=== PATIENT | male | born 1995 | race Caucasian/White ===

== ENCOUNTER 2017-01-22 19:14 | Emergency (ER) | payer OTHER ==
[2017-01-22 19:26] VITALS: RESP 16; TEMP 98.6
--- NOTE | 2017-01-22 21:05 | EDPHY ---
H & P Time Seen by Provider: 01/22/17 20:13 HPI/ROS: CHIEF COMPLAINT: Left ear complaint HISTORY OF PRESENT ILLNESS: 21-year-old male presents emergency department complaining of a bump on his left earlobe. Patient was seen at an urgent care a few days ago and placed on an antibiotic. Patient states that the bump continues to grow. He has had cysts removed before around his ear. Patient denies fevers or chills. He is requesting to have this drained. REVIEW OF SYSTEMS: A comprehensive 10 point review of systems is otherwise negative aside from elements mentioned in the history of present illness. Smoking Status: Never smoked Physical Exam: GEN: Awake, alert, oriented, no acute distress RESP: nl resp effort MSK: Normal appearing SKIN: Earlobe with pea size fluctuant, tender, erythematous mass Constitutional: Initial Vital Signs Temperature (C) 37 C 01/22/17 19:23 Heart Rate 99 01/22/17 19:23 Respiratory Rate 16 01/22/17 19:23 Blood Pressure 126/74 H 01/22/17 19:23 O2 Sat (%) 97 01/22/17 19:23 O2 Delivery Mode Room Air Allergies/Adverse Reactions: Penicillins Allergy (Verified 01/22/17 19:23) shellfish derived Allergy (Verified 01/22/17 19:23) Home Medications: Medication Instructions Recorded NK [No Known Home Meds] 01/22/17 MDM/Departure - MDM Procedures: Procedure: Incision and Drainage cyst. The patient's cyst was located on the earlobe. Risks, benefits, alternatives discussed with the patient and consent obtained. The area was prepped and draped in sterile fashion. The patient received local anesthesia with 1% lidocaine without epinephrine. The cyst was incised with a #11 blade and purulent drainage along with thick white discharge was expressed. Most of cyst capsule removed though some of the capsule remains. The patient tolerated the procedure well. The procedure was performed by myself. - Depart Disposition: Home, Routine, Self-Care Clinical Impression: Sebaceous cyst of ear Condition: Good Instructions: Epidermal Inclusion Cysts (ED) Additional Instructions: Remove your dressing in 24 hours, warm compresses 5 times a day for 10 minutes, follow up with the parole or probation officer at first available appointment. Call in the morning to schedule this. Referrals: LITZY TOPETE [Medical Doctor] - As per Instructions (Pin Inserter Regulator)
[2017-01-22 21:47] VITALS: BP 107/51; PULSE 77; O2SAT 96
== END 2017-01-22 21:47 | disposition home or self-care (01) ==
PROC: 09910ZZ Drainage of Left External Ear, Open Approach (ICD-10-PCS; principal; 2017-01-22)
DX: L72.3 Sebaceous cyst (principal)

== ENCOUNTER 2017-03-14 18:38 | Emergency (ER) | payer OTHER ==
[2017-03-14 18:46] VITALS: BP 105/62; PULSE 81; RESP 16; TEMP 98.2; O2SAT 97
[2017-03-14] MEDS ORDERED: DEXAMETHASONE 4 MG TAB PO ONE (19:20)
--- NOTE | 2017-03-14 19:25 | EDPHY ---
H & P Stated Complaint: sore throat x 5 days, fevers, chills, malaise - Personal History Current Tetanus/Diphtheria Vaccine: Yes Current Tetanus Diphtheria and Acellular Pertussis (TDAP): Yes - Medical/Surgical History Hx Asthma: Yes Hx Chronic Respiratory Disease: No Hx Diabetes: No Hx Cardiac Disease: No Hx Renal Disease: No Hx Cirrhosis: No Hx Alcoholism: No Hx HIV/AIDS: No Hx Splenectomy or Spleen Trauma: No Other PMH: PMHx: denies. PSHx: denies - Social History Smoking Status: Never smoked Time Seen by Provider: 03/14/17 19:12 HPI/ROS: Chief complaint: Sore throat History of present illness: This is a 21-year-old male who presents to the emergency department for a 5 day history of sore throat. He has had associated swelling of the glands in his neck. He reports fevers as well. He denies other associated signs or symptoms including no difficulty opening closing his mouth, no difficulty swallowing, no difficulty breathing, no difficulty talking , no cough, no rash. (Christian Hernandez) - Physical Exam Exam: General Appearance: Alert, nontoxic. Eyes: Pupils equal and round no injection. ENT: Tympanic membranes, external auditory canals, external ears and surrounding soft tissue including over the mastoids are unremarkable. Nasopharynx is not injected. There is no rhinorrhea. Oropharynx is erythematous and edematous with diffuse white exudate. There is no asymmetry. The uvula is midline. No elevation of the tongue. There is no hoarseness, no drooling, no trismus, no stridor. Respiratory: Chest is nontender, lungs are clear to auscultation. Cardiac: regular rate and rhythm. Musculoskeletal: Neck is supple and nontender. Extremities have full range of motion and are nontender. Skin: No rashes or lesions. Neurological: Alert and oriented x4. No meningismus. (Christian Hernandez) Constitutional: Initial Vital Signs Temperature (C) 36.8 C 03/14/17 18:44 Heart Rate 81 03/14/17 18:44 Respiratory Rate 16 03/14/17 18:44 Blood Pressure 105/62 03/14/17 18:44 O2 Sat (%) 97 03/14/17 18:44 O2 Delivery Mode Room Air Allergies/Adverse Reactions: Penicillins Allergy (Verified 03/14/17 18:44) shellfish derived Allergy (Verified 03/14/17 18:44) Home Medications: Medication Instructions Recorded AZITHROMYCIN [Z-PACK] 250 mg PO DAILY #6 tab 03/14/17 Medical Decision Making ED Course/Re-evaluation: Patient seen under the supervision of my secondary supervising physician Dr. Yolette Salazar. Patient presents to the emergency department for persistent sore throat. He is strep positive. No evidence of complications such as abscess formation. He is given Decadron for symptom control. Given penicillin allergy ( he is not sure what kind of reaction) I will place him on a Z-Roque for treatment. Home care is discussed. He is to follow up with a primary care doctor for recheck. Return precautions are given. Patient voiced understanding and agreement with plan. (Christian Hernandez) Differential Diagnosis: Pharyngitis, tonsillitis, this includes infection with strep, unlikely abscess formations, meningitis (Christian Hernandez) Other Provider: The patient was evaluated and managed by the Physician Agent Licensing Clerk/ Nurse Practitioner. My co-signature indicates that I have reviewed this chart and I agree with the findings and plan of care as documented. I am the secondary supervising physician. (Yolette Salazar) - Data Points Medications Given: Discontinued Medications Dexamethasone (Decadron) 10 mg PO EDNOW ONE Stop: 03/14/17 19:21 Last Admin: 03/14/17 19:34 Dose: 10 mg Departure - Departure Disposition: Home, Routine, Self-Care Clinical Impression: Acute streptococcal pharyngitis Condition: Good Instructions: Strep Throat (ED) Additional Instructions: Follow up with your primary care doctor for recheck Take all antibiotics as prescribed until finished If symptoms worsen or new symptoms develop return to the emergency room for recheck Referrals: NONE *PRIMARY CARE P,. [Primary Care Provider] - As per Instructions [facility],. [Clinic] - As per Instructions Prescriptions: AZITHROMYCIN [Z-PACK] 250 mg PO DAILY #6 tab
== END 2017-03-14 19:34 | disposition home or self-care (01) ==
DX: J02.0 Streptococcal pharyngitis (principal); J45.909 Unspecified asthma, uncomplicated

== ENCOUNTER 2017-03-19 18:33 | Emergency (ER) | payer OTHER ==
[2017-03-19 18:43] VITALS: BP 133/90; PULSE 74; RESP 16; TEMP 98.4; O2SAT 98
[2017-03-19] MEDS ORDERED: CLINDAMYCIN 150MG PREPACK#6 BTL TAKEHOME ONE (19:02)
[2017-03-19] MEDS ORDERED: DEXAMETHASONE 2 MG TAB PO ONE (19:03)
--- NOTE | 2017-03-19 19:06 | EDPHY ---
H & P Time Seen by Provider: 03/19/17 18:54 HPI/ROS: CHIEF COMPLAINT: Sore throat HISTORY OF PRESENT ILLNESS: Was in the ED 03/14/2017 and diagnosed with strep throat and prescribed azithromycin. He got better initially and then over the last 48 hours he has had a recurrent sore throat. Worse with swallowing and pain does not radiate. Symptoms moderate. No trouble breathing. REVIEW OF SYSTEMS: No neck stiffness or chest pain PAST MEDICAL HISTORY: Negative Social history: Nonsmoker General Appearance: Alert and conversant, cooperative. Pharyngeal erythema and tonsillar swelling with exudate. Uvula midline. No trismus. Normal voice and no stridor or drooling. Normal range of motion of the neck but does have anterior cervical lymphadenopathy. No cardiac murmur. Breath sounds equal and speaks in full sentences. Emergency Department course/MDM: Likely recurrent strep throat, will treat with dexamethasone and clindamycin this time. ENT referral Smoking Status: Never smoked Constitutional: Initial Vital Signs Temperature (C) 36.9 C 03/19/17 18:42 Heart Rate 74 03/19/17 18:42 Respiratory Rate 16 03/19/17 18:42 Blood Pressure 133/90 H 03/19/17 18:42 O2 Sat (%) 98 03/19/17 18:42 O2 Delivery Mode Room Air Allergies/Adverse Reactions: Penicillins Allergy (Verified 03/14/17 18:44) shellfish derived Allergy (Verified 03/14/17 18:44) Home Medications: Medication Instructions Recorded AZITHROMYCIN [Z-PACK] 250 mg PO DAILY #6 tab 03/14/17 Clindamycin HCl [Clindamycin] 300 mg PO TID #30 cap 03/19/17 MDM/Departure - MDM Medications Given: Discontinued Medications Clindamycin (Cleocin 150 Mg Prepack#6) 1 btl TAKEHOME EDNOW ONE PRN Reason: Protocol Stop: 03/19/17 19:03 Last Admin: 03/19/17 19:14 Dose: 1 btl Dexamethasone (Dexamethasone) 8 mg PO EDNOW ONE Stop: 03/19/17 19:04 Last Admin: 03/19/17 19:15 Dose: 8 mg - Depart Disposition: Home, Routine, Self-Care Clinical Impression: Acute pharyngitis Qualifiers: Pharyngitis/tonsillitis etiology: streptococcus Qualified Code(s): J02.0 - Streptococcal pharyngitis Condition: Good Instructions: Pharyngitis (ED) Prescriptions: Clindamycin HCl [Clindamycin] 300 mg PO TID #30 cap Referrals: Anna Connelly MD [Medical Doctor] - 2-3 days, if not improved (ENT if not better)
[2017-03-19] MEDS ORDERED: DEXAMETHASONE 4 MG TAB ONE (19:10)
[2017-03-19] MEDS ORDERED: DEXAMETHASONE 4 MG TAB PO ONE (19:18)
== END 2017-03-19 19:15 | disposition home or self-care (01) ==
DX: J02.0 Streptococcal pharyngitis (principal)

== ENCOUNTER 2017-09-26 20:04 | Emergency (ER) | payer OTHER ==
[2017-09-26 20:09] VITALS: RESP 16
[2017-09-26] MEDS ORDERED: CEPHALEXIN 500 MG CAP PO ONE (22:16)
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
[2017-09-26 22:26] VITALS: BP 133/75; PULSE 74; TEMP 98.1; O2SAT 97
== END 2017-09-26 22:30 | disposition home or self-care (01) ==
DX: S16.1XXA Strain of muscle, fascia and tendon at neck level, initial encounter (principal); L73.9 Follicular disorder, unspecified; V48.0XXA Car driver injured in noncollision transport accident in nontraffic accident, initial encounter; Y92.410 Unspecified street and highway as the place of occurrence of the external cause; Y93.89 Activity, other specified

== ENCOUNTER 2018-06-06 10:46 | Inpatient (IN) | payer OTHER ==
--- NOTE | 2018-06-06 10:54 | EDPHY ---
H & P <HuberRuy Duran - Last Filed: 06/06/18 12:08> - Medical/Surgical History Hx Asthma: Yes Hx Chronic Respiratory Disease: No Hx Diabetes: No Hx Cardiac Disease: No Hx Renal Disease: No Hx Cirrhosis: No Hx Alcoholism: No Hx HIV/AIDS: No Hx Splenectomy or Spleen Trauma: No Other PMH: PMHx: denies. PSHx: denies - Social History Smoking Status: Never smoked <Anuradha Hopper - Last Filed: 06/06/18 14:01> Time Seen by Provider: 06/06/18 10:51 HPI/ROS: CHIEF COMPLAINT: Seizure versus syncope HISTORY OF PRESENT ILLNESS: 23-year-old male arrives by ambulance after witnessed seizure versus syncopal episode while at work. History obtained primarily from EMS as the patient was actively seizing upon my evaluation. He works as a glass cutter. Upon EMS arrival patient was awake alert had a noted laceration to his tongue. He had stage EMS that he had been feeling 2-3 days of flu-like symptoms, fatigue. He awoke this morning with back pain. REVIEW OF SYSTEMS: 10 systems reviewed and negative with the exception of the elements mentioned in the history of present illness PAST MEDICAL/SURGICAL HISTORY: No known seizure history . SOCIAL HISTORY: No secondhand reports of alcohol or drug use PHYSICAL EXAM 1) GENERAL: Well-developed, well-nourished, alert and oriented. Appears to be in no acute distress. Answering questions appropriately. 2) HEAD: Normocephalic, atraumatic 3) HEENT: Pupils equal, round, reactive to light bilaterally. Negative Horners. Nasopharynx, oropharynx, clear. No deformity or angulation of nose. No septal hematoma. No rhinorrhea. Lateral aspect of tongue laceration/ abrasion.. Ears bilaterally with normal tympanic membranes. No hemotympanum. No fluid or blood in the external auditory canal. No raccoon eyes. No Pitts sign. Teeth are normally aligned with no gross malocclusion, TMJ bilaterally nontender, facial bones nontender including the zygomatic arch, maxilla mandible. 4) NECK: No cervical collar is on. Posterior cervical spine is nontender, no stepoff, no effusion. Full range of motion which does not elicit any midline cervical spine pain, no posterior midline tenderness, no step-off. 5) LUNGS: Clear to auscultation bilaterally, no wheezes, no rhonchi, no retractions. No obvious signs of trauma. No chest wall pain. No flaring, no grunting. Moving symmetrically. No crepitus. 6) HEART: Regular rate and rhythm, 7) ABDOMEN: No guarding, no rebound, no focal tenderness, no peritoneal signs, no signs of trauma, no ecchymosis 8) MUSCULOSKELETAL: Moving all extremities, no focal areas of tenderness, no obvious trauma. No erythema no discoloration. 9) BACK: No midline vertebral tenderness, no fluctuance, no step-off, no obvious trauma, no visual or palpable abnormality. Patella Achilles reflexes intact to bilaterally strength 5/5 10) SKIN: No laceration. No abrasion DIFFERENTIAL DIAGNOSIS: In no particular order including but limited to seizure , status epilepticus, intracranial hemorrhage, cardiac dysrhythmia (Anuradha Hopper) Constitutional: Initial Vital Signs Temperature (C) 36.4 C 06/06/18 10:57 Heart Rate 85 06/06/18 10:57 Respiratory Rate 24 H 06/06/18 10:57 Blood Pressure 144/80 H 06/06/18 10:57 O2 Sat (%) 99 06/06/18 10:57 O2 Delivery Mode Non-Rebreather Mask O2 (L/minute) 15 Allergies/Adverse Reactions: shellfish derived Allergy (Verified 03/14/17 18:44) Home Medications: Medication Instructions Recorded Naproxen Sodium [Aleve 220 MG (*)] 220 mg PO BID PRN 06/06/18 Medical Decision Making - Diagnostics Imaging: Discussed imaging studies w/ faculty i on call medical assistant Radiologist, I viewed and interpreted images myself <Ruy Ngo A - Last Filed: 06/06/18 12:08> <Anuradha Hopper - Last Filed: 06/06/18 14:01> - Diagnostics Imaging Results: Imaging Impressions Chest X-Ray 06/06/18 10:55 Impression: 1. Mild peribronchial cuffing in the perihilar region bilaterally. Findings are nonspecific but can be seen with bronchitis, viral process, or reactive airways disease. 2. Haziness right suprahilar region that could represent focal area of pneumonitis. Head CT 10/05/18 10:55 Impression: 1. Small intraparenchymal hemorrhage right posterior temporal occipital lobe. 2. No subdural hematoma or acute fracture. Findings discussed with Emergency Department physician assistant branch operations manager, Hector Hopper PA-C on June 06, 2018 at 1145 hours. Images reviewed myself (Anuradha Hopper) ED Course/Re-evaluation: 10:51 a.m.: Dr Ngo and I called to bedside emergently shortly after patient arrival via ambulance, patient was actively seizing, had bitten his tongue, had generalized tonic-clonic like movements. Patient transferred from room 18 to trauma [place] 2 where he seizure stopped, remain postictal. Given IV Ativan 2 mg. Will order further diagnostic studies. 10:59 a.m.: Patient's mother, Jaylene Zarate, cell [phone], call the ER at this time, relates this that the patient had texture this morning stating that he was feeling ill, had related that he went to see his primary care physician yesterday because of URI symptoms for the past 2 days, cough, low energy, was diagnosed with presumptive viral syndrome. She relates no history of seizure disorder. No history of similar activity. No history of trauma. No history of substance abuse. No history of alcohol abuse. No history of benzodiazepine abuse 11:40 a.m.: Phone call from radiologist regarding the patient's imaging findings showing a right occipital temporal intraparenchymal hemorrhage. Discussed with Dr. Ruy Ngo at this time. Will consult Neurosurgery 11:50 a.m.: Consultation Dr. Amador will consult Neurosurgery 11:55 a.m.: I spoke with the patient's parents at this time. Father is working a flight this way from [place] Noon: I spoke with the patient at this time. He is much more awake, he is alert, oriented person place time events. He denies recent head injury, denies head or neck manipulation, denies illicit drug use beyond intermittent marijuana use. He denies antecedent headache this morning. States that he believes his hr manager called 911. 12:15 p.m.: Dr. Sadi Rico in the ER to evaluate patient. He recommends CTA and MRI, admit to hospitalist, ICU, Neurosurgery consult 1230 pm: Consultation with hospitalist who agrees to consult for the medicine service (Anuradha Hopper) Other Provider: I assessed this patient in conjunction with MEHDI Hopper since his arrival in the ED. 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 He reported no seizure history to EMS during their assessment. Shortly after arrival here he had a tonic-clonic seizure lasting 1.5-2 minutes. During the seizure he had a fixed leftward gaze and short period of apnea. Bilateral tongue bites noted. He received 2mg IV Ativan with improvement. Vitals are currently stable. Plan for labs, head CT, and seizure management. 1gm IV Keppra ordered. CT: intraparenchymal hemorrhage, occipital lobe. Dr. Walker, neurosurgeon, is aware of patient and will consult. Critical care time spent by me, Dr. Ngo, exclusively with this patient was 35 minutes, exclusive of PA time and exclusive of procedures. The organ system at risk was brain. Time spent in urgent assessment and serial assessments of patient, discussion with patient and family, consideration of interventions, review of CT scans, and consultation with neurosurgery. (Ruy Ngo) - Data Points Laboratory Results: Laboratory Results 06/06/18 10:55 06/06/18 10:55 06/06/18 06/06/18 06/06/18 11:11 10:57 10:55 WBC RBC Hgb POC Hgb 17.7 gm/dL H gm/dL (13.7-17.5) Hct POC Hct 52 % H % (40-51) MCV MCH MCHC RDW Plt Count MPV Neut % (Auto) Lymph % (Auto) [place] % (Auto) Eos % (Auto) Baso % (Auto) Nucleat RBC Rel Count Absolute Neuts (auto) Absolute Lymphs (auto) Absolute Monos (auto) Absolute Eos (auto) Absolute Basos (auto) Absolute Nucleated RBC Immature Gran % Immature Gran # PT INR APTT POC Sodium 143 mEq/L mEq/L (135-145) Sodium POC Potassium 3.3 mEq/L mEq/L (3.3-5.0) Potassium POC Chloride 105 mEq/L mEq/L (97-110) Chloride Carbon Dioxide Anion Gap POC BUN 9 mg/dL mg/dL (7-23) BUN Creatinine POC Creatinine 0.9 mg/dL mg/dL (0.7-1.3) Estimated GFR Glucose POC Glucose 96 mg/dL mg/dL (70-100) Calcium Nasal Influenza A PCR NEGATIVE FOR FLU A (NEGATIVE) Nasal Influenza B PCR NEGATIVE FOR FLU B (NEGATIVE) Ethyl Alcohol Monoscreen NEGATIVE (NEGATIVE) 06/06/18 06/06/18 06/06/18 10:55 10:55 10:35 WBC 14.29 10^3/uL H 10^3/uL (3.80-9.50) RBC 5.62 10^6/uL 10^6/uL (4.40-6.38) Hgb 16.5 g/dL g/dL (13.7-17.5) POC Hgb Hct 49.9 % % (40.0-51.0) POC Hct MCV 88.8 fL fL (81.5-99.8) MCH 29.4 pg pg (27.9-34.1) MCHC 33.1 g/dL g/dL (32.4-36.7) RDW 13.4 % % (11.5-15.2) Plt Count 290 10^3/uL 10^3/uL (150-400) MPV 10.0 fL fL (8.7-11.7) Neut % (Auto) 86.3 % H % (39.3-74.2) Lymph % (Auto) 5.9 % L % (15.0-45.0) [place] % (Auto) 5.5 % % (4.5-13.0) Eos % (Auto) 0.6 % % (0.6-7.6) Baso % (Auto) 0.4 % % (0.3-1.7) Nucleat RBC Rel Count 0.0 % % (0.0-0.2) Absolute Neuts (auto) 12.33 10^3/uL H 10^3/uL (1.70-6.50) Absolute Lymphs (auto) 0.84 10^3/uL L 10^3/uL (1.00-3.00) Absolute Monos (auto) 0.78 10^3/uL 10^3/uL (0.30-0.80) Absolute Eos (auto) 0.09 10^3/uL 10^3/uL (0.03-0.40) Absolute Basos (auto) 0.06 10^3/uL 10^3/uL (0.02-0.10) Absolute Nucleated RBC 0.00 10^3/uL 10^3/uL (0-0.01) Immature Gran % 1.3 % H % (0.0-1.1) Immature Gran # 0.19 10^3/uL H 10^3/uL (0.00-0.10) PT 13.4 SEC SEC (12.0-15.0) INR 1.00 (0.83-1.16) APTT 27.3 SEC SEC (23.0-38.0) POC Sodium Sodium 143 mEq/L mEq/L (135-145) POC Potassium Potassium 3.8 mEq/L mEq/L (3.3-5.0) POC Chloride Chloride 104 mEq/L mEq/L (97-110) Carbon Dioxide 21 mEq/l L mEq/l (22-31) Anion Gap 18 mEq/L H mEq/L (8-16) POC BUN BUN 10 mg/dL mg/dL (7-23) Creatinine 0.8 mg/dL mg/dL (0.7-1.3) POC Creatinine Estimated GFR > 60 Glucose 98 mg/dL mg/dL (70-100) POC Glucose Calcium 10.5 mg/dL H mg/dL (8.5-10.4) Nasal Influenza A PCR Nasal Influenza B PCR Ethyl Alcohol < 10 mg/dL mg/dL (0-10) Monoscreen Medications Given: Discontinued Medications Levetiracetam (Keppra (Premix)) 100 mls @ 400 mls/hr IV EDNOW ONE Stop: 06/06/18 11:12 Last Admin: 06/06/18 11:33 Dose: 100 mls Lorazepam (Ativan Injection) 2 mg IVP EDNOW ONE Stop: 06/06/18 10:56 Last Admin: 06/06/18 10:55 Dose: 2 mg Point of Care Test Results: Chemistry 06/06/18 10:57 POC Sodium 143 mEq/L mEq/L (135-145) POC Potassium 3.3 mEq/L mEq/L (3.3-5.0) POC Chloride 105 mEq/L mEq/L (97-110) POC BUN 9 mg/dL mg/dL (7-23) POC Creatinine 0.9 mg/dL mg/dL (0.7-1.3) POC Glucose 96 mg/dL mg/dL (70-100) ISTAT H&H 06/06/18 10:57 POC Hgb 17.7 gm/dL H gm/dL (13.7-17.5) POC Hct 52 % H % (40-51) Departure <Ruy Ngo - Last Filed: 06/06/18 12:08> <Anuradha Hopper - Last Filed: 06/06/18 14:01> - Departure Disposition: [facility] Inpatient Acute Clinical Impression: Intraparenchymal hemorrhage of brain, Seizure Condition: Fair
[2018-06-06] MEDS ORDERED: LORazepam 2 MG/ML INJ IVP ONE (10:55)
[2018-06-06] MEDS ORDERED: levETIRAcetam 1000MG/NACL 100 ML IV ONE (10:58)
[2018-06-06] MEDS ORDERED: LORazepam 2 MG/ML INJ ONE (10:58)
[2018-06-06 11:02] LABS: PLATELET COUNT 290 10^3/uL (150-400)
[2018-06-06 11:38] LABS: PROTIME(PATIENT) 13.4 SEC (12.0-15.0)
[2018-06-06] MEDS ORDERED: IOPAMIDOL (ISOVUE 370) 100 ML BTL IV ONE (12:21)
--- NOTE | 2018-06-06 14:35 | PDHOSCONS ---
History and Physical - Chief Complaint Seizure, LOC - History of Present Illness Cesar Zarate is a 23 yo M with no significant PMHx who presents to [facility] after witnessed seizure and found to have intraparenchymal hemorrhage. 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 Upon arrival to [facility] ED, patient had seizure while In ED. He reports no hx of syncope or seizures in the past. He was given 2 mg IV Ativan and 1 gm IV Keppra. Upon evaluation, patient appears postictal with intermittent drowsiness. He does report having cold symptoms for the past few days. Including cough and chills. He denies any chest pain, SOB, palpitations, edema, d/c, n/v, weakness. History Information - Allergies/Home Medication List Allergies/Adverse Reactions: shellfish derived Allergy (Verified 03/14/17 18:44) Home Medications: Naproxen Sodium [Aleve 220 MG (*)] 220 mg PO BID PRN 06/06/18 [Last Taken ] I have personally reviewed and updated: family history, medical history, social history, surgical history - Past Medical History no pertinent PMH - Surgical History Reports: no pertinent surgical hx - Family History Negative for: sudden - Social History Smoking Status: Never smoked Drug Use: Marijuana Review of Systems Review of Systems: ROS: 10pt was reviewed & negative except for what was stated in HPI & below Physical Exam Physical Exam: Temp Pulse Resp BP Pulse Ox 36.8 C 92 10 L 108/66 98 06/06/18 13:54 06/06/18 14:00 06/06/18 14:00 06/06/18 13:54 06/06/18 14:00 O2 (L/minute) 2 Constitutional: uncomfortable Eyes: PERRL Ears, Nose, Mouth, Throat: moist mucous membranes Cardiovascular: regular rate and rhythym Respiratory: no respiratory distress, clear to auscultation Gastrointestinal: soft, non-tender abdomen Genitourinary: no bladder tenderness Skin: warm Musculoskeletal: no muscle tenderness Neurologic: No AAOx3 Psychiatric: not encephalopathic Lab Data & Imaging Review 06/06/18 10:55 06/06/18 10:55 WBC 14.29 10^3/uL (3.80-9.50) H 06/06/18 10:55 RBC 5.62 10^6/uL (4.40-6.38) 06/06/18 10:55 Hgb 16.5 g/dL (13.7-17.5) 06/06/18 10:55 POC Hgb 17.7 gm/dL (13.7-17.5) H 06/06/18 10:57 Hct 49.9 % (40.0-51.0) 06/06/18 10:55 POC Hct 52 % (40-51) H 06/06/18 10:57 MCV 88.8 fL (81.5-99.8) 06/06/18 10:55 MCH 29.4 pg (27.9-34.1) 06/06/18 10:55 MCHC 33.1 g/dL (32.4-36.7) 06/06/18 10:55 RDW 13.4 % (11.5-15.2) 06/06/18 10:55 Plt Count 290 10^3/uL (150-400) 06/06/18 10:55 MPV 10.0 fL (8.7-11.7) 06/06/18 10:55 Neut % (Auto) 86.3 % (39.3-74.2) H 06/06/18 10:55 Lymph % (Auto) 5.9 % (15.0-45.0) L 06/06/18 10:55 [place] % (Auto) 5.5 % (4.5-13.0) 06/06/18 10:55 Eos % (Auto) 0.6 % (0.6-7.6) 06/06/18 10:55 Baso % (Auto) 0.4 % (0.3-1.7) 06/06/18 10:55 Nucleat RBC Rel Count 0.0 % (0.0-0.2) 06/06/18 10:55 Absolute Neuts (auto) 12.33 10^3/uL (1.70-6.50) H 06/06/18 10:55 Absolute Lymphs (auto) 0.84 10^3/uL (1.00-3.00) L 06/06/18 10:55 Absolute Monos (auto) 0.78 10^3/uL (0.30-0.80) 06/06/18 10:55 Absolute Eos (auto) 0.09 10^3/uL (0.03-0.40) 06/06/18 10:55 Absolute Basos (auto) 0.06 10^3/uL (0.02-0.10) 06/06/18 10:55 Absolute Nucleated RBC 0.00 10^3/uL (0-0.01) 06/06/18 10:55 Immature Gran % 1.3 % (0.0-1.1) H 06/06/18 10:55 Immature Gran # 0.19 10^3/uL (0.00-0.10) H 06/06/18 10:55 PT 13.4 SEC (12.0-15.0) 06/06/18 10:35 INR 1.00 (0.83-1.16) 06/06/18 10:35 APTT 27.3 SEC (23.0-38.0) 06/06/18 10:35 POC Sodium 143 mEq/L (135-145) 06/06/18 10:57 Sodium 143 mEq/L (135-145) 06/06/18 10:55 POC Potassium 3.3 mEq/L (3.3-5.0) 06/06/18 10:57 Potassium 3.8 mEq/L (3.3-5.0) 06/06/18 10:55 POC Chloride 105 mEq/L (97-110) 06/06/18 10:57 Chloride 104 mEq/L (97-110) 06/06/18 10:55 Carbon Dioxide 21 mEq/l (22-31) L 06/06/18 10:55 Anion Gap 18 mEq/L (8-16) H 06/06/18 10:55 POC BUN 9 mg/dL (7-23) 06/06/18 10:57 BUN 10 mg/dL (7-23) 06/06/18 10:55 Creatinine 0.8 mg/dL (0.7-1.3) 06/06/18 10:55 POC Creatinine 0.9 mg/dL (0.7-1.3) 06/06/18 10:57 Estimated GFR > 60 06/06/18 10:55 Glucose 98 mg/dL (70-100) 06/06/18 10:55 POC Glucose 96 mg/dL (70-100) 06/06/18 10:57 Calcium 10.5 mg/dL (8.5-10.4) H 06/06/18 10:55 Nasal Influenza A PCR NEGATIVE FOR FLU A (NEGATIVE) 06/06/18 11:11 Nasal Influenza B PCR NEGATIVE FOR FLU B (NEGATIVE) 06/06/18 11:11 Ethyl Alcohol < 10 mg/dL (0-10) 06/06/18 10:55 Monoscreen NEGATIVE (NEGATIVE) 06/06/18 10:55 Visualized and Interpreted Chest x-ray results: Yes Chest X-Ray results: no infiltrate Assessment & Plan Assessment: Intraparenchymal Hemorrhage/Seizure - Witnessed seizure this morning at work with LOC - No hx of intracranial hemorrhage, seizure d/o - ETOH negative on admission - CT Head on admission shows small intraparenchymal hemorrhage, R posterior temporal occipital Lobe - Head CTA negative - Neurosurgery consulted who are awaiting MRI brain for further recommendations - Discussed case with Dr. Cardoso, Neurology, who recommended 500 mg Keppra BID, will see patient and give further recommendations - Seizure precautions, Neurochecks ordered - PT/OT Hypokalemia - 3.3 on admission - Order K replacement protocol - Continue to monitor K URI - Reports 3 days of cough and chills - Afebrile on admission, WBC 14.2 - CXR on admission shows mild peribronchial cuffing in perihilar region b/l, nonspecific but can be seen with bronchitis, viral process, or reactive airway disease, haziness in R suprahilar region that could represent area of pneumonitis - Hold off on antibiotics, provide symptom relief with anti-tussive, mucolytic - Flu negative on admission, will order RVP FEN: Regular diet Code: FULL PPx: None due to intraparenchymal hemorrhage Dispo: Admit to Medicine, pending clinical course
--- NOTE | 2018-06-06 15:46 | SOAPPROG ---
Downtime Inpatient MD Late Entry SOAP Note: Full consult dictated. Patient was seen in the ED. CTA was negative. He had some LBP in the ED and lumbar xrays negative. thoracic xray showed some upper T spine wedging. a/p: Patient with an unusual density in the right temporal occipital region. Needs control of seizures MRI of the brain is pending. We have no further recommendations until MRI is completed. We will continue to follow for now.
[2018-06-06] MEDS ORDERED: ONDANSETRON 4 MG/2 ML VIAL IVP PRN (16:03)
[2018-06-06] MEDS ORDERED: ONDANSETRON DISINTEGRATING 4 MG TAB PO PRN (16:03)
[2018-06-06] MEDS ORDERED: guaiFENesin/CODEINE PHOS 10 ML UDCUP PO PRN (16:10)
[2018-06-06] MEDS ORDERED: PROTOCOL POTASSIUM 1 DOSE MISC PRN (16:10)
[2018-06-06] MEDS: ACETAMINOPHEN 325 MG TAB PO PRN (18:31)
--- NOTE | 2018-06-06 18:50 | GCON ---
NEUROSURGICAL CONSULTATION DATE OF CONSULTATION: 06/06/2018 REASON FOR CONSULTATION: Right temporo-occipital density on CT scan following seizure. HISTORY OF PRESENT ILLNESS: The patient is a 23-year-old, who works in [employer] who suffered a witne ssed seizure earlier today and was brought to the [facility] ED. He was postictal, and then he had another seizure in the emergency department and was given Ativan and placed on Keppra. CT scan demonstrated an unusual density above the tentorium on the right-hand side, the nature of which is unclear. Neuro surgery was consulted. PAST MEDICAL HISTORY: None. PAST SURGICAL HISTORY: None. FAMILY HISTORY: Negative for seizure disorder or prior brain tumor. He does note that he had a hist ory as a child of some asthma, but it is not relevant currently. HOME MEDICATIONS: Naproxen and sodium. SOCIAL HISTORY: He does smoke marijuana. REVIEW OF SYSTEMS: He has some low back pain. He denies numbness, tingling, weakness, or trouble wi th vision. PHYSICAL EXAM: Temperature is 36.8, pulse 92, respirations 10, blood pressure 108/66, pulse ox 98%. His eyes are open. He follows commands bilaterally. Verbal. He is oriented x3, but he is still po stictal and mildly confused. His face is symmetric. His tongue protrudes in the midline. He has a bruise on the right tip of the tongue. He has good strength in the upper and lower extremities. DIAGNOSTIC REVIEW: CT scan of the head demonstrates an unusual density above the tentorium on the ri ght side, the nature of which is unclear. A CT angiogram of the brain was requested by Neurosurgery and it demonstrated no evidence of any aneurysm or vascular malformation. ASSESSMENT: The patient is a 23-year-old male, who had a seizure at work, and has an unusual density in the right temporo-occipital region, not really consistent with a traumatic density. The possibil ity of blood in this region is considered. CTA was negative. He needs an MRI of the brain, and give n his 2 seizures, he will be admitted to the ICU on the medicine service. We will be happy to follow as a consult. We have no further suggestions for the treatment of this patient, but an MRI might he lp characterize further the abnormality in the brain. /[id number]/MODL
[2018-06-06] MEDS ORDERED: POTASSIUM CL 10 MEQ TAB PO ONE (20:14)
[2018-06-06] MEDS ORDERED: oxyCODONE IR 5 MG TAB PO PRN (21:07)
[2018-06-06] MEDS: traMADol 50 MG TAB PO PRN (21:29)
[2018-06-06] MEDS: levETIRAcetam 500 MG TAB PO SCH (21:29)
[2018-06-07] MEDS: ACETAMINOPHEN 325 MG TAB PO PRN (05:27)
[2018-06-07] MEDS: traMADol 50 MG TAB PO PRN (05:28)
[2018-06-07 05:37] VITALS: BP 92/54
[2018-06-07] MEDS: levETIRAcetam 500 MG TAB PO SCH (08:56)
[2018-06-07] MEDS ORDERED: POTASSIUM CL 10 MEQ TAB PO ONE (09:26)
--- NOTE | 2018-06-07 09:33 | PDMN ---
Medical Necessity Medical necessity: M327 Seizure; A-1 day; Sz X2 with intraparencymal hemorrhage noted on CT - MRI pending, neuro consult -following, further monitoring and tx needed.
--- NOTE | 2018-06-07 11:20 | NEUSURGPN ---
Assessment/Plan: A: 23 yo male sp seizure and findings of unusual density in right temporal occipital region. MRI confirms cavernoma. CTA was negative. He had some LBP in the ED and lumbar xrays negative. thoracic xray showed some upper T spine wedging. No intervention needed Plan: -Neuro intact, no new symptoms, having mostly some back pain this morning that seems mostly muscular. -MRI shows cavernoma. Discussed these findings with patient this morning. No further scans needed and will follow up as outpatient with Dr. Walker for this -Neurology to consult on seizure and need for further medication-unclear if cavernoma cause of seizure or not -Dispo- Can d home from neurosurgery standpoing, will wait on neurology recs, will follow up as outpatient with Dr. Walker -Seen by Dr. Walker as well this am -Call NS with any questions or concerns S: Denies headaches, nausea, vomiting. Has some back pain. No numbness, tingling , pain in legs. Voiding well. O: NAD, VSS Alert, awake, following commands No droop PERRL, EOMI CN II-XII grossly intact BUE/BLE 01/04 - Physician Discussed Patient with Dr.: Walker Neurosurgery Physical Exam - Vitals, I&O, Labs I and O 06/06/18 06/07/18 06/08/18 05:59 05:59 05:59 Intake Total 600 Output Total 800 Balance -200 Weight 77.111 kg Intake: Oral (ml) 500 IV Intake (ml) 0 IV Infused (ml) 100 Output: Urine (ml) 800 Urinal 800 Vital Signs Temp Pulse Resp BP Pulse Ox 37 C 58 L 12 92/54 L 96 06/07/18 00:00 06/07/18 04:00 06/07/18 04:00 06/07/18 04:00 06/07/18 04:00 Laboratory Results 06/07/18 05:25 ICD10 Worksheet Patient Problems: Problems Problem Status Onset Intraparenchymal hemorrhage of brain Acute Seizure Acute
--- NOTE | 2018-06-07 12:22 | PDDCSUM ---
Discharge Summary Discharge Summary: Date of Admission: 06/06/2018 Date of Discharge: 06/07/2018 Consults: Neurosurgery, Neurology Procedures: CT Brain, CTA Head/Neck, MRI Brain Followup: Neurosurgery, Neurology Hospital Course: Cesar Zarate is a 23 yo M with no significant PMHx who presented to [facility] after witnessed seizure at work. Upon arrival to [facility] ED, patient had seizure while In ED. He reports no hx of syncope or seizures in the past. He was given 2 mg IV Ativan and [address] Head on admission showed small intraparenchymal hemorrhage of R posterior temporal occipital lobe. Neurosurgery was consulted who recommended MRI. MRI showed R occipital lobe benign cavernous malformation corresponding to the acute/subacute hemorrhage seen on CT. Neurology was then consulted who recommended continuing patient on Keppra 500 gm BID. He is to followup with both Neurology and Neurosurgery. Time spent on discharge was >35 minutes with >50% of time spent on patient education and counseling.
--- NOTE | 2018-06-07 13:05 | GCON ---
DATE OF CONSULTATION: 06/07/2018 CHIEF COMPLAINT: Seizure. HISTORY OF PRESENT ILLNESS: Mr. Zarate is a very pleasant 23-year-old gentleman without any epilepsy risk factors. He uses cannabis from time to time , but otherwise has no other history of drugs of abuse which could be implicated in a provoked seizure. 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 He had been feeling an upper respiratory tract infection for the last 2-3 days prior, but otherwise no other provocation, as noted above. He was brought to the emergency department as he had a new onset seizure. While in the emergency department, he had a second witnessed generalized tonic-clonic seizure with tongue biting and postictal confusion. He was given Ativan and loaded with Keppra. Head CT, MRI , MRA revealed a right posterior temporal/occipital cavernous malformation. He was unaware of this finding as he has never had brain imaging prior to these 2 seizures. He was admitted on Keppra 500 mg q.12 and observed overnight carefully, and consulted with Hospital Medicine and Neurosurgery. He has done well without further seizures. He is having no side effects on Keppra thus far over the last 24 hours, specifically no mood changes, depression, suicidal or homicidal ideation. REVIEW OF SYSTEMS: Ten-point review of system was carefully done, only pertinent to the HPI. For past medical history, social history, family history, home medications, allergies, please see the consultation note by Dr. Oneill. PHYSICAL EXAMINATION: VITAL SIGNS: Blood pressure is 111/73. He is afebrile at 37. He is breathing at 16 times per minute. Saturating at 96%. GENERAL: He is awake and alert, and lucid. He is very pleasant, in no acute distress. NEUROLOGIC: Higher mental function is normal. No aphasia. Cranial nerve exam is normal 2 through 7, 11, and 12. Motor exam shows no focal weakness. No convulsive activity in my presence. 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 Overall, the patient's clinical history and imaging would be consistent with new onset symptomatic focal epilepsy from the right posterior cavernous malformation. This was counseled and discussed at length with the patient and his girlfriend, Ken. We discussed that these are vascular malformations which are frequently causative of focal epilepsy. He understands and appreciated the counseling. We will continue indefinite anticonvulsant therapy with Keppra XR 1000 mg at bedtime. We discussed potential risks, benefits and alternatives of Keppra, including mood changes, depression, anger, rage, suicidal and homicidal ideation. He will be on [address] restrictions and seizure precautions. He is agreeable. He will follow up with me in 4-8 weeks for further followup and an outpatient EEG. He will follow up with Neurosurgery for ongoing surveillance, evaluation, and treatment of his cavernous malformation. No further recommendations. He will discharge later today. We will sign off. Please do not hesitate to call if there are any questions or changes in neurologic status. Forty-five total minutes floor time reviewing multiple neuroimaging studies, clinical notes, direct counseling with the patient, and coordination of care. /[id number]/MODL MTDD
== END 2018-06-07 12:55 | disposition home or self-care (01) | DRG 84 ==
LOC: EDUNIT# → F2N 13:48
PROVIDERS: ADMIT Neurological Surgery; ATTEND Neurological Surgery
DX: S06.2X9A Diffuse traumatic brain injury with loss of consciousness of unspecified duration, initial encounter (principal); G40.409 Other generalized epilepsy and epileptic syndromes, not intractable, without status epilepticus; W18.39XA Other fall on same level, initial encounter; Y92.513 Shop (commercial) as the place of occurrence of the external cause; Y99.0 Civilian activity done for income or pay; E87.6 Hypokalemia; J06.9 Acute upper respiratory infection, unspecified
CPT/HCPCS: 80305; 82435-PO; 82565-PO; 82947-PO; 84132-PO; 84295-PO; 84520-PO; 85014-PO; 96365; G0480; J1953; J2060; Q9967

== ENCOUNTER 2018-06-08 05:23 | Emergency (ER) | payer OTHER ==
--- NOTE | 2018-06-08 06:09 | EDPHY ---
H & P Stated Complaint: back pain Time Seen by Provider: 06/08/18 05:54 HPI/ROS: HPI The patient presents with midthoracic back pain which has been present for the last several days which began prior to a seizure that he had the other day bringing him in to the Emergency Department where he was diagnosed with a small intraparenchymal hemorrhage on the right posterior temporal occipital region. He was monitored in the emergency department and then discharged. He says the pain is aching, worse with any movement, not improved with Aleve at home. He does not have any radiation of his pain or numbness or weakness of his arms or legs. He does not have any bowel or bladder changes. REVIEW OF SYSTEMS 10 systems were reviewed and negative with the exception of the elements mentioned in the history of present illness. PMHx: Recent diagnosis of seizure with intraparenchymal hemorrhage Soc Hx: Here with his father PHYSICAL General Appearance: Alert, no distress Eyes: Pupils equal and round no pallor or injection ENT, Mouth: Mucous membranes moist Respiratory: There are no retractions, lungs are clear to auscultation Cardiovascular: Regular rate and rhythm Gastrointestinal: Abdomen is soft and non-tender, no masses, bowel sounds normal Back: There is tenderness in the midthoracic spine throughout the midline and the paraspinal region, there is limited flexion, extension, lateral rotation of the spine secondary to pain Neurological: A&O, 5/5 strength in upper and lower extremities which is symmetric, sensation is intact to light touch Skin: Warm and dry, no rashes Musculoskeletal: Neck is supple non tender Extremities: symmetrical, full range of motion Psychiatric: Patient is oriented X 3, there is no agitation Source: Patient Exam Limitations: No limitations - Personal History Current Tetanus Diphtheria and Acellular Pertussis (TDAP): Yes - Medical/Surgical History Hx Asthma: Yes Hx Chronic Respiratory Disease: No Hx Diabetes: No Hx Cardiac Disease: No Hx Renal Disease: No Hx Cirrhosis: No Hx Alcoholism: No Hx HIV/AIDS: No Hx Splenectomy or Spleen Trauma: No Other PMH: PMHx: seizure. PSHx: denies - Social History Smoking Status: Never smoked Constitutional: Initial Vital Signs Temperature (C) 36.5 C 06/08/18 05:27 Heart Rate 74 06/08/18 05:27 Respiratory Rate 20 06/08/18 05:27 Blood Pressure 81/57 L 06/08/18 05:27 O2 Sat (%) 95 06/08/18 05:27 O2 Delivery Mode Room Air Allergies/Adverse Reactions: shellfish derived Allergy (Verified 06/08/18 05:26) Home Medications: Medication Instructions Recorded Naproxen Sodium [Aleve 220 MG (*)] 220 mg PO BID PRN 06/06/18 levETIRAcetam [Keppra 500 mg (*)] 500 mg PO BID tab 06/07/18 Medical Decision Making - Diagnostics Imaging Results: X-rays thoracic spine three views are unchanged from prior x-rays obtained several days ago, interpreted by me, radiology interpretation is pending. Differential Diagnosis: 23-year-old male, recent diagnosis of intraparenchymal hemorrhage in seizure now presents with midthoracic back pain. On review of his records I see that he had thoracic and lumbar spinal films performed showing wedging of T3 and T4 which likely suggest compression fracture. I will repeat x-rays today. He has no neurologic deficit. X-rays were unremarkable, unchanged from prior on my read. I suspect the patient has muscle strain and this may be related to compression fracture. He has no neurologic deficits. He RD has follow-up with Dr. Amador of Neurosurgery. I have asked that he call to see if he can arrange for sooner appointment. If not, he should follow up with [facility]. I have encouraged Naprosyn with Tylenol. We will trial a lidocaine patch here. We have discussed some modalities for pain management. He will be discharged from the emergency department. Departure - Departure Disposition: Home, Routine, Self-Care Clinical Impression: Acute midline thoracic back pain Condition: Good Instructions: Back Pain (ED), Lower Back Exercises (ED) Additional Instructions: I recommend you continue to take the Aleve twice a day. Two this, you can add acetaminophen 650 mg every 6 hr. If the lidocaine patch helps you here, you can buy this [id number]. I would recommend you call the neurosurgeon's to try to arrange sooner follow-up. As if this is not possible, I recommend that you follow up at [facility]. Referrals: Maycol Walker MD [Medical Doctor] - As per Instructions [facility] [place],. [Clinic] - As per Instructions
[2018-06-08] MEDS ORDERED: LIDOCAINE 4%/MENTHOL 1% PATCH TD ONE (07:17)
[2018-06-08 07:29] VITALS: BP 100/50
[2018-06-08] MEDS ORDERED: PATCH REMOVAL 1 EA PATCH TD SCH (21:00)
== END 2018-06-08 07:30 | disposition home or self-care (01) ==
DX: M54.6 Pain in thoracic spine (principal)

== ENCOUNTER → 2018-07-15 | Outpatient (CLI) | payer OTHER ==
--- NOTE | 2018-07-15 13:42 | CPEEG ---
FOUR-HOUR VIDEO EEG DATE OF STUDY: INTERPRETATION: This 4-hour video EEG recording is normal. There were no definite potentially epile ptogenic abnormalities present during the awake or sleep recordings. During the EEG monitoring sessi on, the patient did not have any clinical events. REPORT: This 4-hour video EEG contains 10 Hz alpha activity over the posterior head regions. There was no abnormal activation at rest, during photic stimulation or hyperventilation. The patient becam e drowsy and fell into sustained sleep during the study. During drowsiness and light sleep, there we re occasional wicket-like waves over the bitemporal head regions. These are of no clinical significa nce. There was no definite abnormal epileptiform activation during drowsiness, sleep, or during time s of arousal. The patient did not have any clinical events during the video EEG monitoring session. /[id number]/MODL
== END ==
LOC: FCPNEURO 07:29
PROVIDERS: ATTEND Psychiatry & Neurology Neurology
DX: D18.02 Hemangioma of intracranial structures (principal); G40.109 Localization-related (focal) (partial) symptomatic epilepsy and epileptic syndromes with simple partial seizures, not intractable, without status epilepticus